=== PATIENT | female | born 1955 | race Caucasian/White ===

== ENCOUNTER 2017-06-09 19:29 | Observation (INO) ==
[2017-06-10] MEDS: 0.9 % Sodium Chloride 1,000 ML IVC SCH ×4 (00:05→21:01)
[2017-06-10] MEDS: *HR* Morphine 2 MG/ML SYRINGE IVP PRN ×2 (00:12→09:11)
[2017-06-10] MEDS ORDERED: Naloxone 0.4 MG/ML INJ IVP PRN ×2 (01:04→17:04)
[2017-06-10] MEDS ORDERED: Ondansetron 4 MG/2 ML VIAL IVP PRN ×2 (01:04→17:04)
--- NOTE | 2017-06-10 01:29 | Internal Med History&Physical ---
Date of Encounter: 06/10/17 Time of Encounter: 00:35 Assessment and Plan (1) Hydronephrosis due to obstruction of ureter Current visit: Yes Status: Acute 1. Will keep npo and start MIV. 2. Will consult Dr. Fontanez for probable urologic intervention later today. 3. Pain and nausea control with IV Morphine and Zofran PRN. 4. Will obtain urine sample for culture and analysis. (2) UTI (urinary tract infection) Current visit: Yes Status: Acute 1. Will collect urine for U/A and culture. 2. UTI has been partially treated as outpatient with Cipro. 3. Will place on IV Rocephin and follow culture results. Qualifiers: Urinary tract infection type: acute cystitis Hematuria presence: with hematuria Qualified Code(s): N30.01 - Acute cystitis with hematuria (3) CAD (coronary artery disease) Current visit: Yes Status: Chronic 1. Will obtain EKG and place on telemetry. 2. Continue home meds once verified. 3. Patient denies any current anginal type symptoms. 4. Monitor clinically. Qualifiers: Coronary Disease-Associated Artery/Lesion type: [place] artery [place] vs. transplanted heart: [place] heart Associated angina: without angina Qualified Code(s): I25.10 - Atherosclerotic heart disease of [place] coronary artery without angina pectoris (4) DVT prophylaxis Current visit: Yes Status: Acute 1. Heparin SQ. Internal Medicine - H&P: HPI Chief complaint: kidney stone Admitted From: Hospital to Hospital Transfer Plans for Post Hospital Care: Home History of present illness: Ms. Anderson is a 62 year old female who was transferred here from [facility] ER for concerns of acute ureterolithiasis with hydronephrosis. Transfer request was made to [place] for urological services. Dr. Fontanez was contacted and he requested patient be admitted to the hospitalist service with urology consult. Upon my assessment of the patient, she is resting in bed comfortably. She is having intermittent pain and nausea. She has had some dysuria, chills, and flank pain for the last several days. She was diagnosed with UTI 3 days ago and has been on antibiotics. She has had some vomiting and nausea but no diarrhea. She denies any cough, chest pain, or shortness of breath. Past Med Surg Social Fam HX - Past Medical History Attestation: Yes The following information was validated with the patient. Source: patient, old records reviewed, obtained from family Medical history: COPD, coronary artery disease, hypertension, seizures Psychiatric history: anxiety, depression - Past Surgical History Surgical History: hysterectomy, orthopedic, other - Social History Smoking Status: Current every day smoker Smokeless Tobacco Status: No Alcohol use: none Drug use: none Current living situation: Home, With Family Activity Level: Independent ambulation Recent Out of Country Travel Within the Last 8 Weeks: No - Family History Mother Hx Family Cardiac Disorders: Yes Hx Family Genitourinary Disorders: No - Additional Family History Additional family history: No FH kidney stones Internal Medicine - H&P: Meds Albuterol Sulfate [Ventolin Hfa] 90 mcg IH 06/09/17 [History] Aspirin [Lo-Dose Aspirin EC] 81 mg PO 06/09/17 [History] Ciprofloxacin HCl [Cipro] 500 mg PO BID 06/09/17 [History] Citalopram [CeleXA] 20 mg PO 06/09/17 [History] Fluticasone Furoate [Arnuity Ellipta] 50 mcg IH 06/09/17 [History] Gabapentin [Neurontin] 300 mg PO 06/09/17 [History] Isosorbide DInitrate [Isosorbide Dinitrate] 30 mg PO 06/09/17 [History] Megestrol Acetate [Megace] 40 mg PO 06/09/17 [History] Metoprolol [Lopressor] 25 mg PO 06/09/17 [History] Montelukast [Singulair] 10 mg PO 06/09/17 [History] Omeprazole Magnesium 20 mg PO 06/09/17 [History] Phenazopyridine [Pyridium] 200 mg PO TID 06/09/17 [History] Simvastatin [Zocor] 5 mg PO 06/09/17 [History] Topiramate [Topamax] 50 mg PO 06/09/17 [History] diazePAM [Valium] 5 mg PO 06/09/17 [History] 3 Allergy/AdvReac Type Severity Reaction Status Date / Time No Known Allergies Allergy Verified 09/17/16 10:06 - Constitutional Constitutional: chills, fever(s), no night sweats - EENT Eyes: no change in vision, no loss of vision Ears: no ear pain, no tinnitus Nose, mouth and throat: no nasal congestion, no sinus pressure, no sore throat - Cardiovascular Cardiovascular ROS IM: no chest pain, no dyspnea, no palpitations, no syncope - Respiratory Respiratory: no cough, no dyspnea, no hemoptysis - Gastrointestinal Gastrointestinal: nausea, no abdominal pain, no diarrhea, no hematemesis, no hematochezia, no melena, no vomiting - Genitourinary Genitourinary: dysuria, flank pain, hematuria - Musculoskeletal Musculoskeletal ROS IM: back pain, no atrophy, no muscle cramps, no muscle weakness - Integumentary Integumentary IM: no rash, no jaundice - Neurological Neurological ROS: no dizziness, no focal weakness, no frequent falls, no headache(s) - Psychiatric Psychiatric: no anxiety, no depression - Endocrine Endocrine IM: no polydipsia, no polyuria - Hematologic/Lymphatic Hematologic/Lymphatic: no easy bruising, no lymphadenopathy - Allergic/Immunologic Allergic/Immunologic: no wheezing, no GI upset with certain foods - Constitutional Vitals: Temp Pulse Resp BP Pulse Ox 98.1 F 98 14 115/64 97 06/09/17 23:45 06/09/17 23:45 06/09/17 23:45 06/09/17 23:45 06/09/17 23:45 General appearance: Present: cooperative, mild distress, A&O X 3, pleasant, answers questions appropriately - Head Head exam: Present: normal inspection - Eye Eye exam: Present: EOMI, PERRL. Absent: scleral icterus Pupils: Present: normal accommodation - ENT ENT exam: Present: mucous membranes dry, normal exam - Neck Neck exam general surgery: Present: full ROM, supple. Absent: tenderness - Respiratory Respiratory exam: Present: CTAB. Absent: chest wall tenderness, rales, respiratory distress, rhonchi, wheezes - Cardiovascular Cardiovascular exam: Present: RRR, +S1, +S2. Absent: diastolic murmur, systolic murmur - GI/Abdominal GI/Abdominal exam: Present: normal bowel sounds, soft, tenderness (right upper quadrant/flank). Absent: guarding, hepatomegaly, mass, rebound, splenomegaly - Extremities Exam Extremities exam: Present: full ROM, warm, radial pulses palpable and symmetrical. Absent: calf tenderness, joint swelling, pedal edema - Back Exam Back exam: Present: CVA tenderness (R). Absent: CVA tenderness (L) - Neurological Exam Neurological exam: Present: alert, CN II-XII intact, oriented X3, no focal deficits - Psychiatric Psychiatric exam: Present: normal affect, normal mood - Skin Skin exam: Present: dry, warm. Absent: rash Internal Med - H&P Results - Labs Labs: I reviewed her labs from [facility], and they include the following: WBC 10.2 Hemoglobin 14.4 Hematocrit 41.2 Platelet Count 118 PT 13.1 INR 1.2 PTT 27.9 Sodium 132 Potassium 3.6 Chloride 104 CO2 19 BUN [address] report of the abdomen and pelvis revealed right-sided urolithiasis with hydronephrosis
[2017-06-10 02:01] LABS: Bilirubin,Urine Small (Negative); Blood,Urine Negative (Negative); Clarity,Urine Cloudy (Clear); Color,Urine Orange (Yellow); Glucose,Urine (UA) Normal (Normal); Ketones,Urine Trace mg/dL (Negative); Leukocyte Esterase,Urine Small (Negative); Nitrite,Urine Positive (Negative); Protein,Urine 30 mg/dL (Neg-Trace)
[2017-06-10 02:03] LABS: Bacteria,Urine None Seen per hpf (None-Few); Hyaline Casts,Urine None Seen per lpf (None-Few); RBC,Urine 0-3 per hpf (0-3); Squamous Epithelial Cell,Urine Many per lpf (None-Few)
[2017-06-10 02:05] LABS: Basophils % 0.1 %; Eosinophils % 0.5 %; Hematocrit 37.7 % (35.3-44.9); Hemoglobin 12.5 g/dL (11.5-15.4); Immature Granulocytes % 0.5 % (0-4); Lymphocytes # 0.9 K/mcL (0.6-4.6); Lymphocytes % 10.6 %; Mean Corpuscular HGB Conc 33.2 g/dL (31.6-35.5); Mean Corpuscular Volume 99.5 fL (83.0-100.0); Mean Platelet Volume 10.2 fL (9.4-12.4); Monocytes # 0.7 K/mcL (0.0-1.3); Monocytes % 8.1 %; Neutrophils # 6.9 K/mcL (1.6-8.9); Platelet Count 116 K/mcL (140-400); Red Blood Count 3.79 M/mcL (3.82-4.97); Red Cell Distribution Width 13.2 % (11.5-14.5); Segmented Neutrophils % 80.2 %
[2017-06-10 02:10] LABS: INR 1.2
[2017-06-10 02:13] LABS: Activated Partial Thrombo Time 25.4 Seconds (26.0-36.0)
[2017-06-10 02:19] LABS: Albumin 3.1 g/dL (3.5-5.7); Albumin/Globulin Ratio 1.2 (1.1-2.2); Bilirubin,Total 0.5 mg/dL (0.3-1.0); Globulin 2.6 g/dL (2.4-3.5); Magnesium 1.7 mg/dL (1.6-2.6); Potassium 3.4 mEq/L (3.5-5.1); Total Protein 5.7 g/dL (6.4-8.9)
[2017-06-10] MEDS: cefTRIAXone 1,000 MG in Water for inj. (sterile) 20 ML 10 ML IVP SCH ×2 (03:13→09:04)
[2017-06-10] MEDS ORDERED: *HR* Heparin 5,000 UNIT/ML VIAL SQ SCH (06:00)
--- NOTE | 2017-06-10 06:56 | Urology - Consult Note ---
Date of Encounter: 06/10/17 Time of Encounter: 06:54 - Assessment and Plan (1) Right ureteral stone Current Visit: Yes Status: Acute Assessment and plan: We will plan on continuing IV fluids. We will plan for right ureteroscopic stone extraction tomorrow if the patient fails to pass her stone. (2) Hydronephrosis due to obstruction of ureter Current Visit: Yes Status: Acute Assessment and plan: Severe this time but serum creatinine normal. No emergent need to unobstruct right kidney. Urology CN:HPI Consult date: 06/10/17 Reason for consult Urology: Other (right ureteral stone) Requesting physician: Yakov Brandon History of present illness: Jean-Claude is a 62-year-old female with a history of right-sided flank pain since Tuesday. Patient states the pain was located on her right flank and was a 10 out of 10 in nature. She had some radiation towards her right groin. She went to the emergency room where she was found to have a distal right ureteral stone with significant right-sided hydronephrosis proximal to this. Patient also with some nausea without vomiting. No fevers. Patient's serum creatinine was normal but slightly elevated. Past Med Surg Social Fam HX - Past Medical History Medical history: COPD, coronary artery disease, hypertension, seizures Psychiatric history: anxiety, depression - Past Surgical History Surgical History: hysterectomy, orthopedic, other - Social History Smoking Status: Current every day smoker Smokeless Tobacco Status: No Alcohol use: none Drug use: none - Family History Mother Hx Family Cardiac Disorders: Yes Hx Family Genitourinary Disorders: No Medications and Allergies Albuterol Sulfate [Ventolin Hfa] 90 mcg IH 06/09/17 [History] Aspirin [Lo-Dose Aspirin EC] 81 mg PO 06/09/17 [History] Ciprofloxacin HCl [Cipro] 500 mg PO BID 06/09/17 [History] Citalopram [CeleXA] 20 mg PO 06/09/17 [History] Fluticasone Furoate [Arnuity Ellipta] 50 mcg IH 06/09/17 [History] Gabapentin [Neurontin] 300 mg PO 06/09/17 [History] Isosorbide DInitrate [Isosorbide Dinitrate] 30 mg PO 06/09/17 [History] Megestrol Acetate [Megace] 40 mg PO 06/09/17 [History] Metoprolol [Lopressor] 25 mg PO 06/09/17 [History] Montelukast [Singulair] 10 mg PO 06/09/17 [History] Omeprazole Magnesium 20 mg PO 06/09/17 [History] Phenazopyridine [Pyridium] 200 mg PO TID 06/09/17 [History] Simvastatin [Zocor] 5 mg PO 06/09/17 [History] Topiramate [Topamax] 50 mg PO 06/09/17 [History] diazePAM [Valium] 5 mg PO 06/09/17 [History] 3 Allergy/AdvReac Type Severity Reaction Status Date / Time No Known Allergies Allergy Verified 09/17/16 10:06 Review of Systems - Constitutional no chills, no fever(s) - EENT Nose, mouth and throat: no dizziness - Cardiovascular no chest pain - Respiratory no cough - Gastrointestinal no abdominal pain - Musculoskeletal back pain - Integumentary no erythema - Neurological no confusion - Psychiatric no anxiety, no confusion - Hematologic/Lymphatic no easy bleeding - Allergic/Immunologic no throat swelling Exam Initial Vital Signs Temp Pulse Resp BP Pulse Ox 98.6 F 100 15 100/66 93 06/09/17 21:23 06/09/17 21:23 06/09/17 21:23 06/09/17 21:23 06/09/17 21:23 - General physical appearance Present: well developed - Eyes Present: normal ocular movement. Absent: icteric - Neck Present: no lymphadenopathy - Respiratory Present: normal respiratory effort - Cardiovascular Cardiovascular exam IM: RRR - Abdomen Abdomen: Present: soft, non tender. Absent: masses - Integumentary Present: no rash - Neurologic Present: normal coordination. Absent: confused - Musculoskeletal Present: normal gait Urology Results - Labs 06/10/17 01:56 06/10/17 01:56 Abnormal lab results RBC 3.79 M/mcL (3.82-4.97) L 06/10/17 01:56 Plt Count 116 K/mcL (140-400) L 06/10/17 01:56 PT 13.0 Seconds (9.4-12.1) H 06/10/17 01:56 APTT 25.4 Seconds (26.0-36.0) L 06/10/17 01:56 Sodium 134 mEq/L (136-145) L 06/10/17 01:56 Potassium 3.4 mEq/L (3.5-5.1) L 06/10/17 01:56 Chloride 108 mEq/L (98-107) H 06/10/17 01:56 Carbon Dioxide 21 mEq/L (23-29) L 06/10/17 01:56 Est GFR ( Amer) 59 (> 60) L 06/10/17 01:56 Est GFR (Non-Af Amer) 48 (> 60) L 06/10/17 01:56 Glucose 193 mg/dL (70-105) H 06/10/17 01:56 POC Glucose 146 (58-89) H 06/10/17 05:37 Calcium 8.0 mg/dL (8.6-10.3) L 06/10/17 01:56 AST 9 Units/L (13-39) L 06/10/17 01:56 Serum Total Protein 5.7 g/dL (6.4-8.9) L 06/10/17 01:56 Albumin 3.1 g/dL (3.5-5.7) L 06/10/17 01:56 Urine Color Comfort (Yellow) A 06/10/17 01:54 Urine Clarity Cloudy (Clear) A 06/10/17 01:54 Urine Protein 30 mg/dL (Neg-Trace) H 06/10/17 01:54 Urine Ketones Trace mg/dL (Negative) H 06/10/17 01:54 Urine Nitrite Positive (Negative) A 06/10/17 01:54 Urine Bilirubin Small (Negative) H 06/10/17 01:54 Urine Urobilinogen 4.0 mg/dL (Normal) H 06/10/17 01:54 Ur Leukocyte Esterase Small (Negative) H 06/10/17 01:54 Urine Microscopic WBC 5-15 per hpf (0-3) H 06/10/17 01:54 Ur Squamous Epith Cells Many per lpf (None-Few) H 06/10/17 01:54 Diabetes panel 06/10/17 Range/Units 01:56 Sodium 134 L (136-145) mEq/L Potassium 3.4 L (3.5-5.1) mEq/L Chloride 108 H (98-107) mEq/L Carbon Dioxide 21 L (23-29) mEq/L BUN 14 (8-23) mg/dL Creatinine 1.13 (0.60-1.20) mg/dL Glucose 193 H (70-105) mg/dL Calcium 8.0 L (8.6-10.3) mg/dL AST 9 L (13-39) Units/L ALT 10 (7-52) Units/L Alkaline Phosphatase 94 (34-104) Units/L Albumin 3.1 L (3.5-5.7) g/dL Calcium panel 06/10/17 Range/Units 01:56 Calcium 8.0 L (8.6-10.3) mg/dL Albumin 3.1 L (3.5-5.7) g/dL Pituitary panel 06/10/17 Range/Units 01:56 Sodium 134 L (136-145) mEq/L Potassium 3.4 L (3.5-5.1) mEq/L Chloride 108 H (98-107) mEq/L Carbon Dioxide 21 L (23-29) mEq/L BUN 14 (8-23) mg/dL Creatinine 1.13 (0.60-1.20) mg/dL Glucose 193 H (70-105) mg/dL Calcium 8.0 L (8.6-10.3) mg/dL Adrenal panel 06/10/17 Range/Units 01:56 Sodium 134 L (136-145) mEq/L Potassium 3.4 L (3.5-5.1) mEq/L Chloride 108 H (98-107) mEq/L Carbon Dioxide 21 L (23-29) mEq/L BUN 14 (8-23) mg/dL Creatinine 1.13 (0.60-1.20) mg/dL Glucose 193 H (70-105) mg/dL Calcium 8.0 L (8.6-10.3) mg/dL Total Bilirubin 0.5 (0.3-1.0) mg/dL AST 9 L (13-39) Units/L ALT 10 (7-52) Units/L Alkaline Phosphatase 94 (34-104) Units/L Albumin 3.1 L (3.5-5.7) g/dL All other labs normal. - Imaging CT scan - abdomen: image reviewed CT scan - pelvis: image reviewed Consult Discharge Plan - Plan Referrals: Priscila Romero, EDUCATION MANAGER [Primary Care Provider] -
[2017-06-10] MEDS ORDERED: Ketorolac 30 MG/ML VIAL IVP PRN ×2 (10:15→17:04)
[2017-06-10] MEDS ORDERED: Albuterol 2.5 MG/3 ML NEBULIZER IH ONE (15:54)
[2017-06-10] MEDS ORDERED: Famotidine 20 MG/2 ML VIAL IVP ONE (15:54)
--- NOTE | 2017-06-10 15:58 | Anesthesia Evaluation PreOp ---
Date of Encounter: 06/10/17 Time of Encounter: 16:00 - Past History Planned Operation: Rt USE Laser Cardiac History: HTN, Other (CAD) Pulmonary History: Smoker, COPD PHARMACEUTICAL PROCESS ENGINEER History: Denies Any Significant HX Other Medical History: Other (Anxiety Depression) Anesthesia History: No Prior Anesthetic Complications : No Alcohol Use: none Drug use: none Medications and Allergies Albuterol Sulfate [Ventolin Hfa] 90 mcg IH AD 06/09/17 [History] Aspirin [Lo-Dose Aspirin EC] 81 mg PO DAILY 06/09/17 [History] Ciprofloxacin HCl [Cipro] 500 mg PO BID 06/09/17 [History] Citalopram [CeleXA] 20 mg PO DAILY 06/09/17 [History] Gabapentin [Neurontin] 300 mg PO BID 06/09/17 [History] Isosorbide DInitrate [Isosorbide Dinitrate] 30 mg PO DAILY 06/09/17 [History] Metoprolol [Lopressor] 25 mg PO DAILY 06/09/17 [History] Omeprazole Magnesium 20 mg PO DAILY 06/09/17 [History] Phenazopyridine [Pyridium] 200 mg PO TID 06/09/17 [History] Simvastatin [Zocor] 5 mg PO DAILY 06/09/17 [History] Topiramate [Topamax] 50 mg PO BID 06/09/17 [History] Celecoxib [Celebrex] 200 mg PO BID 06/10/17 [History] Fluticasone Propionate Nasal [Flonase] 1 spr NS AD 06/10/17 [History] Meloxicam [Mobic] 15 mg PO DAILY 06/10/17 [History] 3 Allergy/AdvReac Type Severity Reaction Status Date / Time No Known Allergies Allergy Verified 09/17/16 10:06 - Meds/Allergy Pre-op Review Medications Reviewed: Yes Allergies Reviewed: Yes Anesthesia Results - Labs 06/10/17 01:56 06/10/17 01:56 - Imaging EKG: report reviewed (Sinus Tach) Anesthesia Exam O2 Sat Height 1.55 m Weight 57.622 kg Weight 57.606 kg O2 Sat by Pulse Oximetry 96 O2 Sat by Pulse Oximetry 94 O2 Sat by Pulse Oximetry 95 O2 Sat by Pulse Oximetry 97 O2 Sat by Pulse Oximetry 93 Vital Signs Temp Pulse Resp BP Pulse Ox 98.6 F 100 15 100/66 93 06/09/17 21:23 06/09/17 21:23 06/09/17 21:23 06/09/17 21:23 06/09/17 21:23 Height: 5'1 Weight: 127 lbs NPO (# of Hours): MN Pain Scale: 0 - HEENT Pupil (Motor): Pupils equal, EOMI Mallampati: III Teeth: Edentulous Oral Opening: Less than or equal to 3 - PHARMACEUTICAL PROCESS ENGINEER LOC: Oriented PHARMACEUTICAL PROCESS ENGINEER Motor: Normal RUE, Normal LUE, Normal RLE, Normal LLE, Normal Face PHARMACEUTICAL PROCESS ENGINEER Sensory: Normal: RUE, LUE, RLE, LLE, Face - Cardiac Rhythm: Regular Murmur: None JVD: No Carotid Bruit: No - Pulmonary Breath Sounds: bilateral Clear Respiratory Effort: Symmetrical Anesthesia Assess/Plan ASA Score: 3 (HTN CAD COPD Tobacco) Modified Jeremi Scale for Level of Consciousness: Cooperative, oriented, and tranquil Anesthetic Plan: General Monitoring Plan: Standard Monitors Recovery Plan: PACU (Discussed GA, agrees to proceed)
[2017-06-10] MEDS ORDERED: Famotidine 20 MG/2 ML VIAL ONE (16:04)
--- NOTE | 2017-06-10 17:00 | Operative Note ---
Date of procedure: 06/10/17 Pre-op diagnosis: right ureteral stone Post-op diagnosis: same Procedure: Right ureteroscopic laser lithotripsy of stone, right ureteroscopic basket retrieval stone fragment, right 4.8 x 26 cm ureteral stent placement Anesthesia: GETA Surgeon: Willard Fontanez Was there an administrative assistant office manager present: No Estimated blood loss (cc): 5 Specimen: Right ureteral stone Condition: stable Disposition: PACU Procedure in Detail: Patient was taken to the operative room. Time out procedure performed. Patient was prepped and draped in normal sterile fashion. I then inserted the semirigid ureteroscope into the patient's urethra and advanced into the right ureter. I decided to place a Glidewire on the right side. Confirmation of the wire within the right kidney was obtained using fluoroscopy. I then replaced the semirigid ureteroscope into the right ureter. I encountered the distal 8 mm stone. I then used the holmium laser to fragment the stone. All stone fragments were then removed using a basket device. The entire ureter was surveyed with no further stone fragments seen. I then replaced a Glidewire into the right kidney where I was able to place a 4.8 x 26 cm stent. A string was left for easy removal in 2-3 days.
[2017-06-10] MEDS ORDERED: Ondansetron 4 MG/2 ML VIAL ONE (17:02)
[2017-06-10] MEDS ORDERED: *HR* FentaNYL (PF) 100 MCG/2 ML VIAL ONE (17:02)
[2017-06-10] MEDS ORDERED: Lidocaine -MPF 2% 2 ML VIAL ONE (17:02)
[2017-06-10] MEDS ORDERED: Dexamethasone 4 MG/ML VIAL ONE (17:02)
[2017-06-10] MEDS ORDERED: *HR* Propofol 200 MG/20 ML VIAL IVP ONE (17:02)
--- NOTE | 2017-06-10 17:42 | Anesthesia Evaluation Post Op ---
Date of Encounter: 06/10/17 Time of Encounter: 17:30 - Vital Signs Vital Signs: Vital Signs/O2 Sat/Glucose, Most Current Temp Pulse Resp BP Pulse Ox 06/10/17 17:34 99.1 F 89 14 134/72 100 06/10/17 17:24 92 18 135/99 100 06/10/17 17:14 94 18 138/81 100 06/10/17 17:04 97.9 F 114 20 141/89 100 - Lungs Lungs: Clear Ascult./Percussion - Airway Airway: Non-obstructed - Cardiovascular Regular Rate - Mental Status Mental Status: Alert & Oriented, Answers Appropriately - Pain Pain Scale: 0 - Nausea Vomiting Nausea Vomiting: Not Present - Hydration Hydration: Ice chips - Discharge PostOp Status: Transfer Patient to floor
[2017-06-10] MEDS: *HR* Heparin 5,000 UNIT/ML VIAL SQ SCH (18:18)
--- NOTE | 2017-06-10 18:31 | Event Note ---
Date of Encounter: 06/10/17 Time of Encounter: 11:00 Patient was seen by nocturnalist earlier today and also by myself Urology was consulted and patient taken to the ER today for Right ureteroscopic laser lithotripsy of stone with ureteral stent placement; a string was left for easy removal in 2-3 days. Will continue IV ceftriaxone
[2017-06-11] MEDS: *HR* Heparin 5,000 UNIT/ML VIAL SQ SCH (05:51)
--- NOTE | 2017-06-11 08:06 | Urology Progress Note ---
Date of Encounter: 06/11/17 Time of Encounter: 08:05 - Assessment and Plan (1) Right ureteral stone Current Visit: Yes Status: Acute Assessment and plan: sp removal. ok to dc from urology standpoint. f/u made for patient. patient instructed to remove stent on tuesday at home. (2) Hydronephrosis due to obstruction of ureter Current Visit: Yes Status: Acute Progress Note Narrative: patient seen. feeling much better. cultures neg. Objective Initial Vital Signs Temp Pulse Resp BP Pulse Ox 98.6 F 100 15 100/66 93 06/09/17 21:23 06/09/17 21:23 06/09/17 21:23 06/09/17 21:23 06/09/17 21:23 - General physical appearance Present: well developed - Abdomen Present: soft - Labs 06/10/17 01:56 06/10/17 01:56 Consult Discharge Plan - Plan Referrals: Priscila Romero, EMAIL DESIGNER [Primary Care Provider] -
[2017-06-11] MEDS: 0.9 % Sodium Chloride 1,000 ML IVC SCH (08:23)
[2017-06-11 08:29] LABS: Basophils % 0.1 %; Hematocrit 34.4 % (35.3-44.9); Hemoglobin 11.3 g/dL (11.5-15.4); Immature Granulocytes % 0.4 % (0-4); Lymphocytes # 0.6 K/mcL (0.6-4.6); Lymphocytes % 6.1 %; Mean Corpuscular HGB Conc 32.8 g/dL (31.6-35.5); Mean Corpuscular Hemoglobin 32.8 pg (28.0-33.3); Mean Corpuscular Volume 99.7 fL (83.0-100.0); Monocytes # 0.6 K/mcL (0.0-1.3); Monocytes % 6.7 %; Neutrophils # 8.1 K/mcL (1.6-8.9); Platelet Count 127 K/mcL (140-400); Red Blood Count 3.45 M/mcL (3.82-4.97); Red Cell Distribution Width 13.5 % (11.5-14.5); Segmented Neutrophils % 86.7 %
[2017-06-11 08:40] LABS: BUN/Creatinine Ratio 20 (6-26); Blood Urea Nitrogen 14 mg/dL (8-23); Calcium 8.4 mg/dL (8.6-10.3); Carbon Dioxide 20 mEq/L (23-29); Chloride 113 mEq/L (98-107); Glucose 147 mg/dL (70-105); Osmolality,Calculated 287 (280-300); Potassium 4.1 mEq/L (3.5-5.1); Sodium 137 mEq/L (136-145); eGFR For African Americans > 60 (> 60); eGFR For Non-African Americans > 60 (> 60)
[2017-06-11] MEDS ORDERED: cefTRIAXone 1,000 MG in Water for inj. (sterile) 20 ML 10 ML IVP SCH (09:00)
--- NOTE | 2017-06-11 10:18 | Electrocardiograph Report ---
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
[2017-06-11 11:10] VITALS: BP 133/71
--- NOTE | 2017-06-11 14:21 | Discharge Summary ---
Date of Encounter: 06/11/17 Time of Encounter: 11:00 - Discharge Diagnosis (1) Hydronephrosis due to obstruction of ureter Priority: Primary Status: Acute (2) Right ureteral stone Priority: Primary Status: Acute (3) UTI (urinary tract infection) Priority: Primary Status: Acute Qualifiers: Urinary tract infection type: acute cystitis Hematuria presence: with hematuria Qualified Code(s): N30.01 - Acute cystitis with hematuria - Discharge Medications Prescriptions: Ciprofloxacin HCl [Cipro] 500 mg PO BID 3 Days #6 tablet Home Medications: Albuterol Sulfate [Ventolin Hfa] 90 mcg IH AD 06/09/17 [History] Aspirin [Lo-Dose Aspirin EC] 81 mg PO DAILY 06/09/17 [History] Citalopram [CeleXA] 20 mg PO DAILY 06/09/17 [History] Gabapentin [Neurontin] 300 mg PO BID 06/09/17 [History] Isosorbide DInitrate [Isosorbide Dinitrate] 30 mg PO DAILY 06/09/17 [History] Metoprolol [Lopressor] 25 mg PO DAILY 06/09/17 [History] Omeprazole Magnesium 20 mg PO DAILY 06/09/17 [History] Phenazopyridine [Pyridium] 200 mg PO TID 06/09/17 [History] Simvastatin [Zocor] 5 mg PO DAILY 06/09/17 [History] Topiramate [Topamax] 50 mg PO BID 06/09/17 [History] Celecoxib [Celebrex] 200 mg PO BID 06/10/17 [History] Fluticasone Propionate Nasal [Flonase] 1 spr NS AD 06/10/17 [History] Meloxicam [Mobic] 15 mg PO DAILY 06/10/17 [History] Ciprofloxacin HCl [Cipro] 500 mg PO BID 3 Days #6 tablet 06/11/17 [Rx] Allergies/Adverse Reactions: 3 Allergy/AdvReac Type Severity Reaction Status Date / Time No Known Allergies Allergy Verified 09/17/16 10:06 Procedures/tests Complete & Pending: Procedures Performed prior 72 hours Category Date Time Status ECG 12 lead ECG [ECG] AM 0600 Y 06/10/17 06:00 Completed Date of admission: 06/09/17 21:18 Primary care physician: Priscila Romero CNP Consults: 06/10/17 01:07 Consult to Physician [CONS] Routine Consulting Provider: Willard Fontanez Reason for Consult: kidney stone/hydronephrosis Call Completed: Yes - Patient Status Disposition: Home, Self-Care - Discharge Instructions Instructions: Kidney Stones (DC), Urinary Tract Infection in Women (DC) Follow Up With: Priscila Romero CNP [Primary Care Provider] - Hospital course: Patient is a 62 year female with past medical history significant for COPD, CAD , hypertension and seizures who presented to [facility] on 06/09/17 due to urinary symptoms. Patient reported of having intermittent pain and nausea in addition to dysuria and chills and flank pain for the last several days. Patient reported being diagnosed with a UTI 3 days ago and was started on Meredith biotics. She was transferred here from [facility] ER for concerns of acute ureterolithiasis with hydronephrosis. Transfer request was made to [facility] for urological services. Dr. Fontanez was contacted and he requested patient be admitted to the hospitalist service with urology consult. Urology was consulted and patient taken to the ER today for Right ureteroscopic laser lithotripsy of stone with ureteral stent placement; a string was left for easy removal in 2-3 days. Patient was treated for UTI with IV ceftriaxone and will be discharged to continue Cipro as an outpatient and to follow-up with urology on 07/15/17. - Time Spent with Patient Total time spent providing and/or coordinating discharge services: Less than 30 minutes - Constitutional Vitals: Temp Pulse Resp BP Pulse Ox 97.7 F 93 17 133/71 95 06/11/17 11:08 06/11/17 11:08 06/11/17 11:08 06/11/17 11:08 06/11/17 11:08 General appearance: Present: cooperative, mild distress, A&O X 3, pleasant, answers questions appropriately - Cardiovascular Cardiovascular exam: Present: RRR, +S1, +S2. Absent: diastolic murmur, gallop, rubs, systolic murmur - GI/Abdominal GI/Abdominal exam: Present: normal bowel sounds, soft, no peritoneal signs. Absent: distended, tenderness
[2017-06-11] MEDS ORDERED: FLUARIX QUAD 2017-18 36MOS UP/PF 0.5 ML SYRINGE IM ONE (15:02)
== END 2017-06-11 15:35 | disposition home or self-care (01) ==
LOC: 3ANU → 2ANU 06-10 07:32
PROVIDERS: ADMIT Pediatrics; ATTEND Hospitalist